=== PATIENT | female | born 1975 | race Caucasian/White ===

== ENCOUNTER 2016-11-10 22:27 | Emergency (ER) | payer MEDICAID ==
[2016-11-10 22:41] VITALS: BP 156/103
--- OUTSIDE RECORDS SUMMARY | 2016-11-10 23:09 | XMS REPORT | Continuity of Care Document ---
:1975 Author Organization [facility] ([facility]) Address [address] [place] [address] Phone [phone] Care Team Providers Name Role Phone Inocencia Hassan Primary Care Provider [phone] Source Comments This disclosure is being made pursuant to the Care Everywhere program, applicable federal and state laws, and may not contain all informaitonavailable regarding this patient.[facility] ([facility]) Active Allergies and Adverse Reactions No Known Allergies Current Medications Prescription Sig. Disp. Refills Start Date End Date Status ibuprofen 800 mg Take 1 Tab by mouth 180 Tab 2 07/29/2012 Active tablet 3 times daily with meals as needed. Indications: PAIN gabapentin 300 mg Take 1 Cap by mouth 360 Cap 2 07/29/2012 Active capsule 3 times daily. Increase to 2 TID after 1 week if tolerated Indications: NEUROPATHIC PAIN traMADol 50 mg tablet Take 1 Tab by mouth 90 Tab 3 07/29/2012 Active 3 times daily as needed. Indications: PAIN baclofen 10 mg tablet Take 1 Tab by mouth 90 Tab 3 07/29/2012 Active 3 times daily as needed. Indications: MUSCLE SPASTICITY OF SPINAL ORIGIN Active Problems Problem Noted Date LBP (low back pain) 07/30/2012 Fatigue 07/30/2012 Panic attacks 07/30/2012 Social History Tobacco Use Types Packs/Day Years Used Date Current Every Day Smoker Cigarettes 0.5 10 Smokeless Tobacco: Never Used Tobacco Cessation:Counseling Given: Yes Comments: Alcohol Use Drinks/Week oz/Week Comments Yes 6 beers about 1-2 times per month. does not drink and drive. 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 Pulse 80 07/29/2012 9:09 AM FERRYBOAT OPERATOR HELPER Temperature 36.5 C (97.7 F) 07/29/2012 9:09 AM FERRYBOAT OPERATOR HELPER Respiratory Rate - - Height 1.695 m (5' 6.73") 07/29/2012 9:09 AM FERRYBOAT OPERATOR HELPER Weight 133 kg (293 lb 3.4 oz) 07/29/2012 9:09 AM FERRYBOAT OPERATOR HELPER Body Mass Index 46.29 07/29/2012 9:09 AM FERRYBOAT OPERATOR HELPER Oxygen Saturation - - Plan of Care Health Maintenance Due Date Last Done Comments Hepatitis B Vaccine (1 of 3 - Primary Series) 1975 Tdap Vaccine 02/16/1988 MMR Vaccine 1995 Td Vaccine 1995 Pneumococcal Vaccine (1 of 1 - PPSV23) 02/16/1996 Cervical Cancer Screening 2007 Influenza Vaccine: Seasonal (#1) 04/15/2016 Lipid Disorder Screening 07/29/2017 07/29/2012 Results from Last 3 Months Not on file
== END 2016-11-10 23:05 | disposition left against medical advice (07) ==
LOC: ER 22:27
DX: Z53.21 Procedure and treatment not carried out due to patient leaving prior to being seen by health care provider (principal)

== ENCOUNTER 2016-12-16 15:51 | Emergency (ER) | payer MEDICAID ==
[2016-12-16 16:16] VITALS: BP 140/50
--- OUTSIDE RECORDS SUMMARY | 2016-12-16 16:41 | XMS REPORT | Continuity of Care Document ---
:1975 Author Organization [facility] ([facility]) Address [address] [place] [address] Phone [phone] Care Team Providers Name Role Phone Inocencia Hassan Primary Care Provider [phone] Source Comments This disclosure is being made pursuant to the Care Everywhere program, applicable federal and state laws, and may not contain all informaitonavailable regarding this patient.[facility] ([facility]) Active Allergies and Adverse Reactions No [...] Taken Blood Pressure 123/70 07/29/2012 9:09 AM INSPECTOR RETURNED MATERIALS Pulse 80 07/29/2012 9:09 AM INSPECTOR RETURNED MATERIALS Temperature 36.5 C (97.7 F) 07/29/2012 9:09 AM INSPECTOR RETURNED MATERIALS Respiratory Rate - - Height 1.695 m (5' 6.73") 07/29/2012 9:09 AM INSPECTOR RETURNED MATERIALS Weight 133 kg (293 lb 3.4 oz) 07/29/2012 9:09 AM INSPECTOR RETURNED MATERIALS Body Mass Index 46.29 07/29/2012 9:09 AM INSPECTOR RETURNED MATERIALS Oxygen Saturation - - Plan of Care [...]
== END 2016-12-16 16:25 | disposition left against medical advice (07) ==
LOC: ER 15:51
DX: Z53.21 Procedure and treatment not carried out due to patient leaving prior to being seen by health care provider (principal)

== ENCOUNTER 2017-02-14 15:44 | Emergency (ER) | payer MEDICAID ==
[2017-02-14 16:41] VITALS: BP 140/86
--- OUTSIDE RECORDS SUMMARY | 2017-02-14 16:50 | XMS REPORT | Continuity of Care Document ---
:1975 Author Organization [facility] ([facility]) Address [address] [place] [address] Phone [phone] Care Team Providers Name Role Phone Inocencia Hassan Primary Care Provider [phone] Source Comments This disclosure is being made pursuant to the Care Everywhere program, applicable federal and state laws, and may not contain all informaitonavailable regarding this patient.[facility] ([facility]) Active Allergies and Adverse Reactions No [...] Taken Blood Pressure 123/70 07/29/2012 9:09 AM UNIT SUPERVISOR Pulse 80 07/29/2012 9:09 AM UNIT SUPERVISOR Temperature 36.5 C (97.7 F) 07/29/2012 9:09 AM UNIT SUPERVISOR Respiratory Rate - - Height 1.695 m (5' 6.73") 07/29/2012 9:09 AM UNIT SUPERVISOR Weight 133 kg (293 lb 3.4 oz) 07/29/2012 9:09 AM UNIT SUPERVISOR Body Mass Index 46.29 07/29/2012 9:09 AM UNIT SUPERVISOR Oxygen Saturation - - Plan of Care [...]
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
== END 2017-02-14 17:54 | disposition home or self-care (01) ==
LOC: ER 15:44
DX: F32.9 Major depressive disorder, single episode, unspecified (principal)